=== PATIENT | male | born 1975 | race Caucasian/White ===

== ENCOUNTER 2019-08-07 08:05 | Outpatient (CLI) | payer OTHER ==
--- NOTE | 2019-08-07 09:18 | MRI ---
EXAM: MRI of the abdomen without and with contrast COMPARISON: None HISTORY: Lesion seen on CT of the abdomen at [facility] within the liver TECHNIQUE: Multiplanar multi sequence MR images were taken of the abdomen without and with IV contras t. [An MRCP was performed.] FINDINGS: Liver: There is a well-circumscribed 2.4 cm mass in the central aspect of the liver. This demonstrate s subtle high T2 signal, early arterial enhancement and persistent enhancement without washout on delayed phase images. No additional liver lesions are seen. No dropout is seen in any portion of the liver on out of phase images. No abnormal enhancement. Gallbladder: No filling defects or gallbladder wall thickening. Common bile duct: Normal caliber without filling defects Adrenal glands: Unremarkable. Kidneys: No hydronephrosis. 1.3 cm right renal cyst. No abnormal areas of enhancement. Spleen: Unremarkable. Pancreas: Unremarkable. No abnormal enhancement. Retroperitoneum: No enlarged lymph nodes Bones: No marrow signal abnormality. IMPRESSION: 1. Central liver lesion is nonspecific but signal characteristics favor a hemangioma. A follow-up CT or MRI in 3 months is recommended to ensure stability. 2. Right renal cyst
== END 2019-08-07 08:06 | disposition home or self-care (01) ==
LOC: BICMRI 08:05
PROVIDERS: ATTEND Family Medicine
DX: R16.0 Hepatomegaly, not elsewhere classified (principal); N28.1 Cyst of kidney, acquired; K76.9 Liver disease, unspecified
CPT/HCPCS: 74183

== ENCOUNTER 2020-06-22 08:56 | Outpatient (CLI) | payer OTHER ==
--- NOTE | 2020-06-22 12:01 | MRI ---
MRI ABDOMEN WITHOUT AND WITH CONTRAST: Date: 06/22/2020 HISTORY: Lesion seen in the liver on prior studies. TECHNIQUE: Multiplanar, multisequence MR images were obtained of the abdomen without and with IV contrast. FINDINGS: There is a stable, well circumscribed mass within the central aspect of the liver. This is at the beverly ction of segments [place] and VIII of the liver. This demonstrates subtle high T2 signal. After the admin istration of contrast, this demonstrates early or complete arterial enhancement with persistent enhan cement on the delayed images. No washout is seen. No loss of signal is seen on [id number] images wi thin this lesion. No other liver lesions are present. No biliary dilatation is seen in the liver. There is a small 1.6 cm nonenhancing cyst in the right kidney. The left kidney, gallbladder, adrenal glands, spleen, and pancreas are unremarkable. No abdominal adenopathy is seen. No marrow signal abnormality is present. IMPRESSION: 1. There is a stable lesion in the liver which is likely benign. This may either represent a flash-f illing hemangioma, adenoma, or area of focal nodular hyperplasia. 2. Right renal cyst. POS: [facility]
[2020-06-22] MEDS ORDERED: Magnevist 469MG/ML 20 ML VIAL ONE (13:12)
== END 2020-06-22 08:57 | disposition home or self-care (01) ==
LOC: BICMRI 08:56
PROVIDERS: ATTEND Family Medicine
DX: D18.03 Hemangioma of intra-abdominal structures (principal); K76.9 Liver disease, unspecified; N28.1 Cyst of kidney, acquired
CPT/HCPCS: 74183; 82565; A9579